=== PATIENT | female | born 1995 | race Caucasian/White ===

== ENCOUNTER 2020-06-30 22:39 | Emergency (ER) | payer OTHER ==
[~2020-06-30 22:39] MED LIST: AMOXICILLIN500 MG PO; ANTIHISTAMINE PO; CEPHALEXIN500 M1 PO; CIPRO500 MG PO; CLARITIN-D 10 M1 T21 PO; CONCERTA54 MG PO; FIORICET 50-301 EACH PO; HYDROCODONE BIT1 T11 PO; KENALOG 0.5% CR15 GM PO; PREDNICOT10 MG PO; PREDNISONE10 MG PO; PROAIR HFA0.09 MG/AC INH; ROBITUSSIN DM 105 ML PO; SERTRALINE HYD100 MG PO; ULTRAM50 MG PO; ZOFRAN ODT4 MG SL
== END 2020-07-01 01:16 | disposition home or self-care (01) ==
LOC: ED 22:39
DX: M76.61 Achilles tendinitis, right leg (principal); F17.200 Nicotine dependence, unspecified, uncomplicated; Z91.040 Latex allergy status; Z79.899 Other long term (current) drug therapy